=== PATIENT | female | born 1940 ===

== ENCOUNTER 2017-01-08 19:45 | Inpatient (IN) | payer MEDICARE, OTHER ==
[~2017-01-08] VITALS: Ht 165.9 cm; Wt 74.8 kg
[~2017-01-08 19:45] MED LIST: ASPIR 8181 MG ORAL; ATORVASTATIN CA20 MG ORAL; CLONIDINE0.1 MG PO; CYCLOSPORINE50 MG PO; DIOVAN320 MG ORAL; FUROSEMIDE40 MG ORAL; HYDRALAZINE HCL50 MG ORAL; LISINOPRIL10 MG ORAL; METOPROLOL TART50 M1 ORAL; NATEGLINIDE60 MG PO; NORCO 5-325 TA1 EACH ORAL; PREDNISONE20 M1 PO; PROTONIX40 MG ORAL; XANAX0.5 MG ORAL
[2017-01-09] VITALS: BP 134/72
[2017-01-09] MEDS: Norco 5mg/325mg tab ORAL PRN ×2 (00:56→13:47)
[2017-01-09] MEDS: D5 1/2NS 1,000 ML IV SCH ×2 (01:00→13:49)
[2017-01-09 04:00] VITALS: BP 110/66
[2017-01-09] MEDS: NovoLOG Insulin Flexpen SUBQ SCH ×4 (06:30→21:25)
[2017-01-09 07:17] LABS: BASOPHILS % (AUTO) 0.7 % (0.0-2.0); EOSINOPHILS % (AUTO) 1.4 % (0.0-3.0); LYMPHOCYTES % (AUTO) 26.8 % (20.0-45.0); MEAN CORPUSCULAR HEMOGLOBIN 27.6 PG (27.0-31.0); MEAN CORPUSCULAR HGB CONC 32.3 G/DL (32.0-36.0); MEAN CORPUSCULAR VOLUME 86 FL (80-99); MEAN PLATELET VOLUME 8.7 FL (6.5-10.1); NEUTROPHILS % (AUTO) 64.1 % (45.0-75.0); PLATELET COUNT 226 K/UL (150-450); RED CELL DISTRIBUTION WIDTH 13.2 % (11.6-14.8)
[2017-01-09 07:42] LABS: INR 1.1 (0.9-1.1)
[2017-01-09 07:45] LABS: ALANINE AMINOTRANSFERASE < 5 U/L (3-33); ALBUMIN/GLOBULIN RATIO 1.3 (1.0-2.7); ANION GAP 13 (5-15); ASPARTATE AMINO TRANSFERASE 9 U/L (5-40); CALCIUM 8.2 mg/dL (8.6-10.2); CARBON DIOXIDE 29 mEQ/L (20-30); CHLORIDE 99 mEQ/L (98-107); CREATININE 1.1 mg/dL (0.5-0.9); HEMOLYSIS 0; PHOSPHORUS 3.6 mg/dL (2.5-4.8); POTASSIUM 3.6 mEQ/L (3.4-4.9); SODIUM 141 mEQ/L (135-145); TOTAL PROTEIN 5.3 g/dL (6.6-8.7)
[2017-01-09 08:48] VITALS: BP 144/68
[2017-01-09 11:50] VITALS: BP 148/87
--- NOTE | 2017-01-09 13:50 | History & Physical ---
History and Physical History & Physicial Dictated for Int Med-Dr Montoya no. [id number]. FLORES BOURGEOIS Jan 09, 2017 13:50
[2017-01-09 16:24] VITALS: BP 117/77
--- NOTE | 2017-01-09 19:07 | History and Physical Report ---
DATE OF ADMISSION: 01/08/[address] Montoya. CHIEF COMPLAINT: The patient is a 76-year-old female, who presents with chief complaint of vaginal bleeding. HISTORY OF PRESENT ILLNESS: Began on 01/07/2017. The patient began to experience bright red blood per vagina. The patient states she soaked a couple of pads. The patient presented to [facility] emergency room. The patient was found to be anemic with vaginal bleeding. The patient is transferred to [facility] for insurance purposes. The patient presents with a chief complaint of postmenopausal bleeding. REVIEW OF SYSTEMS: Constitutional: The patient denies weight loss or weight gain. The patient denies fevers or chills. HEENT: The patient denies ear or throat pain. The patient denies headache. Cardiovascular: The patient denies palpitations or chest pain. Chest: The patient denies wheeze or shortness of breath. Abdomen: The patient complains of bilateral lower quadrant pain. The patient denies nausea, vomiting, diarrhea, or constipation. Genitourinary: The patient complains of vaginal bleeding as above. The patient denies dysuria or increased frequency of urination. Neuromuscular: The patient denies seizures or generalized weakness. PAST MEDICAL HISTORY: Significant for, 1. Type 2 diabetes. 2. Coronary artery disease. 3. Hypertension. PAST SURGICAL HISTORY: Significant for, 1. Appendectomy. 2. Coronary artery bypass graft in 2012. CURRENT MEDICATIONS: 1. Xanax 0.5 mg one tablet p.o. at bedtime p.r.n. 2. Aspirin 81 mg one tablet p.o. daily. 3. Atorvastatin 20 mg one tablet p.o. at bedtime. 4. Cyclosporine 50 mg one tablet p.o. twice daily. 5. Lasix 40 mg one tablet p.o. daily. 6. Hydralazine 75 mg one tablet p.o. q.8 hours p.r.n. 7. Lisinopril 10 mg two tablets p.o. twice daily. 8. Metoprolol 50 mg one tablet p.o. twice daily. 9. Starlix 60 mg one tablet p.o. three times daily. 10. Protonix 40 mg one tablet p.o. daily. 11. Prednisone 20 mg one tablet p.o. daily. 12. Diovan 320 mg one tablet p.o. daily. ALLERGIES: No known drug allergies. SOCIAL HISTORY: The patient is . The patient admits to tobacco use of 1/4 pack per day. The patient denies alcohol use. PHYSICAL EXAMINATION: VITAL SIGNS: Temperature 98.1 degrees, respirations 20, pulse 68, and blood pressure 134/26. GENERAL: The patient is a well-developed and well-nourished female, in no apparent distress. HEENT: Eyes, pupils are equal and responsive to light and accommodation. Extraocular movements are intact. NECK: Supple without lymphadenopathy. CHEST: Lungs are clear to auscultation bilaterally without wheezes or rales. CARDIOVASCULAR: Regular rhythm and rate. S1 and S2 are normal without murmurs, rubs, or gallops. ABDOMEN: Soft and nondistended. Positive bowel sounds. There is tenderness to palpation bilaterally in the lower quadrants. There is no rebound or guarding noted. EXTREMITIES: Negative for clubbing, cyanosis, or edema. RECTAL/GENITAL: Refused. NEUROLOGIC: Cranial nerves II through XII are grossly intact without focal deficits. Motor strength is 5/5 bilaterally. Deep tendon reflexes are 2+ plantar. LABORATORY STUDIES: WBC 6.0, hemoglobin 8.0, hematocrit 24.8, and platelets 226,000. Sodium 141, potassium 3.6, chloride 98, CO2 29, BUN 15, creatinine 1.1, glucose 112. An abdominal ultrasound at [place] revealed a left adnexal complicated cyst consistent with neoplasm. ASSESSMENT: This is a 76-year-old female. 1. Left adnexal mass. 2. Postmenopausal bleeding. 3. Anemia of blood loss. 4. Diabetes type 2. 5. Coronary artery disease. 6. Hypertension. 7. Hypercholesterolemia. TREATMENT: 1. Left adnexal mass/postmenopausal bleeding. The Gynecology consultation is obtained with Dr. Edward. A CT scan of the abdomen and pelvis is pending. We will follow recommendations of Gynecology. Complex cyst of the left adnexa is concerning for malignancy. 2. Anemia of chronic blood loss. The patient has been typed and crossed for two units of packed RBCs. We will transfuse for hemoglobin less than 8. 3. Diabetes type 2. Continue with Starlix as above. A NovoLog sliding scale has been instituted. 4. Coronary artery disease. The patient is status post coronary artery bypass graft. 5. Hypertension. Continue Diovan as above. 6. Hypercholesteremia. Continue Lipitor as above. James Villafana M.D. DR: KARMA JOB#: [id number] CC:
[2017-01-09 20:00] VITALS: BP 129/66
[2017-01-10] VITALS: BP 125/62
[2017-01-10] MEDS: D5 1/2NS 1,000 ML IV SCH ×2 (03:52→16:45)
[2017-01-10 04:00] VITALS: BP 131/72
[2017-01-10 04:26] LABS: BASOPHILS % (AUTO) 0.7 % (0.0-2.0); EOSINOPHILS % (AUTO) 1.9 % (0.0-3.0); LYMPHOCYTES % (AUTO) 28.6 % (20.0-45.0); MEAN CORPUSCULAR HEMOGLOBIN 27.9 PG (27.0-31.0); MEAN CORPUSCULAR HGB CONC 32.2 G/DL (32.0-36.0); MEAN CORPUSCULAR VOLUME 87 FL (80-99); MEAN PLATELET VOLUME 8.4 FL (6.5-10.1); MONOCYTES % (AUTO) 8.1 % (1.0-10.0); NEUTROPHILS % (AUTO) 60.6 % (45.0-75.0); PLATELET COUNT 218 K/UL (150-450); RED BLOOD COUNT 3.24 M/UL (4.20-5.40); RED CELL DISTRIBUTION WIDTH 13.9 % (11.6-14.8); WHITE BLOOD COUNT 5.8 K/UL (4.8-10.8)
[2017-01-10 04:42] LABS: ANION GAP 11 (5-15); CALCIUM 8.2 mg/dL (8.6-10.2); CARBON DIOXIDE 27 mEQ/L (20-30); CHLORIDE 103 mEQ/L (98-107); CREATININE 1.1 mg/dL (0.5-0.9); HEMOLYSIS 1; POTASSIUM 3.9 mEQ/L (3.4-4.9); SODIUM 141 mEQ/L (135-145)
[2017-01-10] MEDS: NovoLOG Insulin Flexpen SUBQ SCH ×4 (06:07→21:46)
[2017-01-10 08:00] VITALS: BP 148/83
[2017-01-10 12:00] VITALS: BP 145/88
--- NOTE | 2017-01-10 14:59 | Internal Med Progress Note ---
Subjective Physician Name Maurice Montoya Attending Physician Maurice Montoya MD Current Medications Medications (Trade) Dose Ordered Sig/Graciela Route PRN Reason Start Time Stop Time Status Last Admin Dose Admin Acetaminophen (Tylenol) 650 mg Q6H PRN ORAL Mild Pain/Temp > 100.5 01/08/17 22:30 02/07/17 22:29 Acetaminophen/ Hydrocodone Bitart ([place] 5/325) 1 tab Q4H PRN ORAL Moderate Pain (Pain Scale 4-6) 01/08/17 22:30 01/15/17 22:29 01/09/17 13:47 Dextrose STAT PRN IV Hypoglycemia 01/08/17 22:45 02/07/17 22:44 Dextrose/Sodium Chloride (D5 0.45% NS) 1,000 ml @ 75 mls/hr [id number] IV 01/09/17 00:45 02/08/17 00:44 01/10/17 03:52 Insulin Aspart (NovoLOG) BEFORE MEALS AND HS SUBQ 01/09/17 06:30 02/08/17 06:29 01/10/17 12:08 Morphine Sulfate (Morphine Sulfate) 2 mg Q4H PRN IVP For Pain 01/08/17 22:30 01/15/17 22:29 Ondansetron HCl (Zofran) 4 mg Q4H PRN IVP Nausea & Vomiting 01/08/17 22:30 02/07/17 22:29 Allergies: Coded Allergies: NO KNOWN ALLERGIES (Unverified Allergy, Unknown, 03/04/14) Subjective Awake, alert, responsive, no more vaginal bleeding, C/O abdominal pain, No N /V Objective Last Vital Signs Date Time Temp Pulse Resp B/P Pulse Ox O2 Delivery O2 Flow Rate FiO2 01/10/17 12:00 98.2 72 18 145/88 99 Room Air Laboratory Tests Test 01/10/17 03:35 White Blood Count 5.8 K/UL (4.8-10.8) Red Blood Count 3.24 M/UL (4.20-5.40) L Hemoglobin 9.0 G/DL (12.0-16.0) L Hematocrit 28.0 % (37.0-47.0) L Mean Corpuscular Volume 87 FL (80-99) Mean Corpuscular Hemoglobin 27.9 PG (27.0-31.0) Mean Corpuscular Hemoglobin Concent 32.2 G/DL (32.0-36.0) Red Cell Distribution Width 13.9 % (11.6-14.8) Platelet Count 218 K/UL (150-450) Mean Platelet Volume 8.4 FL (6.5-10.1) Neutrophils (%) (Auto) 60.6 % (45.0-75.0) Lymphocytes (%) (Auto) 28.6 % (20.0-45.0) Monocytes (%) (Auto) 8.1 % (1.0-10.0) Eosinophils (%) (Auto) 1.9 % (0.0-3.0) Basophils (%) (Auto) 0.7 % (0.0-2.0) Sodium Level 141 mEQ/L (135-145) Potassium Level 3.9 mEQ/L (3.4-4.9) Chloride Level 103 mEQ/L (98-107) Carbon Dioxide Level 27 mEQ/L (20-30) Anion Gap 11 (5-15) Blood Urea Nitrogen 16 mg/dL (7-23) Creatinine 1.1 mg/dL (0.5-0.9) H Estimat Glomerular Filtration Rate mL/min (>60) Glucose Level 119 mg/dL (74-106) H Calcium Level 8.2 mg/dL (8.6-10.2) L Intake and Output 01/09/17 01/10/17 19:00 07:00 Intake Total 1425 ml 825 ml Balance 1425 ml 825 ml Intake Oral 600 ml IV Total 825 ml 825 ml # Voids 3 Objective General: No acute distress, awake and alert HEENT: NCAT, sclera anicteric, PERRL, EOMI. Neck: Supple, no significant jugular venous distention, Lungs: Fair inspiratory effort, no accessory muscle use, clear to auscultation bilaterally, no Wheeze or Rales. Heart: Regular rate and rhythm, normal S1/S2, no murmurs Abdomen: soft, Generalized tenderness, nondistended. Normoactive bowel sounds. / Rectal: Refused and deferred. Extremities: No Cyanosis , clubbing or edema. Varicose Veins LE's. Neuro: A&O x 3, Able to move all extremities Skin: warm, no rashes or lesions Psych: Normal mood and affect Assessment/Plan Assessment/Plan 1. Left adnexal mass most likely Ovarian CA. 2. Postmenopausal bleeding. 3. Anemia most likely due to acute blood loss. 4. Diabetes type 2. 5. Coronary artery disease. 6. Hypertension. 7. Hypercholesterolemia. TREATMENT: Gynecology consultation Dr. Edward. CT scan of the abdomen and pelvis is pending result. Discuss [facility] and [place] 125 was over 100 Monitor Labs. Maurice Montoya MD Jan 10, 2017 14:59
--- NOTE | 2017-01-10 15:21 | Diagnostic Imaging Report ---
APPROVED REPORT CPT Code: 22705 Present Symptoms Comments: Pain Hx of bleeding BILATERAL: Imaging reveals a patent deep venous system bilaterally. There is no evidence of thrombus within the femoral, popliteal or tibial segments. The greater saphenous veins are also within normal limits. Doppler indicates normal spontaneous flow within these segments.
[2017-01-10 16:00] VITALS: BP 148/92
[2017-01-10] MEDS ORDERED: NS 550ML IV ONE (16:12)
[2017-01-10] MEDS ORDERED: D5 1/2NS 1000ml IV ONE (16:12)
[2017-01-10] MEDS ORDERED: Tubing Blood Filter IV ONE (16:12)
--- NOTE | 2017-01-10 16:26 | Diagnostic Imaging Report ---
Indications: Abdominal pain Technique: Continuous helical CT imaging of the abdomen and pelvis was performed with automatic exposure control following administration of oral and intravenous nonionic iodine contrast, on a Siemens sensation [address] scanner. Axial, coronal, and sagittal images were reconstructed at 5 mm slice thickness. CTDI volume(s): 17 mGy Total DLP: 860 mGy-cm Findings: Comparison: Thoracic CT angiogram 06/10/2014 Oral contrast is passed throughout the gastrointestinal tract to the level of the midtransverse colon, tract unopacified distal to this. Entire tract nondilated. Small hiatal hernia. Appendix not identified. No obvious mural thickening, adjacent stranding, extraluminal gas or fluid collections. Multilobulated, multiloculated complex cystic mass occupies much of the pelvis and extends into the lower abdomen, measuring 15 x 11 x 10 cm. It demonstrates a prominent soft tissue component at its right posterior lateral margin which measures 8 cm in diameter and appears to be contiguous with the cervix. Endocervical canal is dilated, filled with fluid and soft tissue density. No normal uterus identified. No normal separate ovary identified. No separate enlarged pelvic, retroperitoneal, or mesenteric lymph nodes. Multiple circumscribed low attenuation foci in liver and spleen. Most are cystic in appearance. 1 cm ectasia of focus of lesser hypoattenuation in hepatic segment 4A/B. adjacent to falciform ligament. Suggestion of one or more faintly calcified stones in gallbladder lumen. No mural thickening, adjacent fluid or edema. 1.5 cm circumscribed low-attenuation focus interpolar cortex left kidney. Prominent arterial mural calcifications without obvious flow-limiting stenosis or occlusion. Pancreas, adrenal glands, right kidney, unopacified ureters and urinary bladder, remainder visualized pelvic anatomy unremarkable. Clustered of small noncalcified nodules up to 10 mm in diameter lateral basal segment lower lobe right lung. 8 mm diameter calcified nodule also present in the right middle lobe. 5 mm irregular noncalcified nodular density basal aspect lingula. These areas were largely obscured by patchy parenchymal consolidation on previous CT angiogram. Linear densities and dependent portions of both lung bases. Sternal wires. Prominent calcification versus prosthesis in region of mitral valve. Multilevel disc space narrowing with marginal osteophyte formation, vacuum phenomenon and lumbar, lower thoracic spine. Central endplate compressions of L1, L4 vertebral bodies. Fixation hardware proximal aspect left femur, associated intertrochanteric fracture healed. No other focal skeletal abnormality identified. Impression: Large complex cystic and solid mass in the pelvis, apparently contiguous with the cervix. Presence or absence of uterus indeterminate. This is suspicious for neoplasm and may be cervical, uterine, or ovarian in origin. Hepatosplenic low-attenuation foci most likely cysts. Lesser low attenuation focus in left hepatic lobe likely focal fatty infiltration. Small hiatal hernia Left renal cortical cyst Suggestion of gallstones Arteriosclerosis Prior ORIF left femur Degenerative spondylosis with central endplate compressions, likely chronic Calcified and noncalcified nodules in both lung bases, likely all granulomatous, presence of some on previous exam indeterminate.. Metastatic neoplasm not excludable. Dedicated contrast-enhanced CT scan the thorax recommended. Previous sternotomy with possible mitral valve replacement
[2017-01-10 20:00] VITALS: BP 148/74
[2017-01-11] VITALS (7 sets, daily range): BP systolic 133–164; BP diastolic 73–92
[2017-01-11] MEDS: D5 1/2NS 1,000 ML IV SCH ×2 (06:05→17:47)
[2017-01-11 06:23] LABS: BASOPHILS % (AUTO) 0.8 % (0.0-2.0); EOSINOPHILS % (AUTO) 2.2 % (0.0-3.0); MEAN CORPUSCULAR HEMOGLOBIN 27.7 PG (27.0-31.0); MEAN CORPUSCULAR HGB CONC 32.3 G/DL (32.0-36.0); MEAN CORPUSCULAR VOLUME 86 FL (80-99); MEAN PLATELET VOLUME 8.5 FL (6.5-10.1); MONOCYTES % (AUTO) 8.6 % (1.0-10.0); NEUTROPHILS % (AUTO) 66.4 % (45.0-75.0); PLATELET COUNT 213 K/UL (150-450); RED BLOOD COUNT 3.07 M/UL (4.20-5.40); RED CELL DISTRIBUTION WIDTH 13.2 % (11.6-14.8); WHITE BLOOD COUNT 5.4 K/UL (4.8-10.8)
[2017-01-11] MEDS: NovoLOG Insulin Flexpen SUBQ SCH ×4 (06:24→20:16)
[2017-01-11] MEDS: Morphine Sulfate 2mg/ml Inj IVP PRN ×2 (07:40→13:58)
[2017-01-11] MEDS: Norco 5mg/325mg tab ORAL PRN ×2 (10:13→17:46)
--- NOTE | 2017-01-11 13:40 | Internal Med Progress Note ---
Subjective Date of Service: Jan 11, 2017 Physician Name James Bourgeois Attending Physician Maurice Montoya MD Current Medications Medications (Trade) Dose Ordered Sig/Graciela Route PRN Reason Start Time Stop Time Status Last Admin Dose Admin Acetaminophen (Tylenol) 650 mg Q6H PRN ORAL Mild Pain/Temp > 100.5 01/08/17 22:30 02/07/17 22:29 01/10/17 21:46 Acetaminophen/ Hydrocodone Bitart ([place] 5/325) 1 tab Q4H PRN ORAL Moderate Pain (Pain Scale 4-6) 01/08/17 22:30 01/15/17 22:29 01/11/17 10:13 Dextrose STAT PRN IV Hypoglycemia 01/08/17 22:45 02/07/17 22:44 Dextrose/Sodium Chloride (D5 0.45% NS) 1,000 ml @ 75 mls/hr [id number] IV 01/09/17 00:45 02/08/17 00:44 01/10/17 16:45 Insulin Aspart (NovoLOG) BEFORE MEALS AND HS SUBQ 01/09/17 06:30 02/08/17 06:29 01/11/17 11:39 Morphine Sulfate (Morphine Sulfate) 2 mg Q4H PRN IVP For Pain 01/08/17 22:30 01/15/17 22:29 01/11/17 07:40 Ondansetron HCl (Zofran) 4 mg Q4H PRN IVP Nausea & Vomiting 01/08/17 22:30 02/07/17 22:29 Allergies: Coded Allergies: NO KNOWN ALLERGIES (Unverified Allergy, Unknown, 03/04/14) ROS Limited/Unobtainable: No Constitutional: Reports: no symptoms HEENT: Reports: no symptoms Cardiovascular: Reports: no symptoms Respiratory: Reports: no symptoms Gastrointestinal/Abdominal: Reports: no symptoms Genitourinary: Reports: other - vaginal bleeding Neurologic/Psychiatric: Reports: no symptoms Subjective 76 YO F admitted with post menopausal bleeding. Await CELL LEAD consult. Cover for Int Med-Dr Montoya. Objective Last Vital Signs Date Time Temp Pulse Resp B/P Pulse Ox O2 Delivery O2 Flow Rate FiO2 01/11/17 11:12 97.2 01/11/17 08:54 68 21 160/92 96 Room Air Laboratory Tests Test 01/11/17 05:50 White Blood Count 5.4 K/UL (4.8-10.8) Red Blood Count 3.07 M/UL (4.20-5.40) L Hemoglobin 8.5 G/DL (12.0-16.0) L Hematocrit 26.3 % (37.0-47.0) L Mean Corpuscular Volume 86 FL (80-99) Mean Corpuscular Hemoglobin 27.7 PG (27.0-31.0) Mean Corpuscular Hemoglobin Concent 32.3 G/DL (32.0-36.0) Red Cell Distribution Width 13.2 % (11.6-14.8) Platelet Count 213 K/UL (150-450) Mean Platelet Volume 8.5 FL (6.5-10.1) Neutrophils (%) (Auto) 66.4 % (45.0-75.0) Lymphocytes (%) (Auto) 22.0 % (20.0-45.0) Monocytes (%) (Auto) 8.6 % (1.0-10.0) Eosinophils (%) (Auto) 2.2 % (0.0-3.0) Basophils (%) (Auto) 0.8 % (0.0-2.0) Intake and Output 01/10/17 01/11/17 19:00 07:00 Intake Total 225 ml 75 ml Balance 225 ml 75 ml IV Total 225 ml 75 ml # Voids 5 Objective General: alert, cooperative, no distress, appears stated age Head: normocephalic, without obvious abnormality, atraumatic Eyes: conjunctivae/corneas clear. PERRL, EOM's intact Throat: lips, mucosa, and tongue normal. MMM Neck: supple, symmetrical, trachea midline, and no JVD Lungs: clear to auscultation bilaterally Heart: regular rate and rhythm, S1, S2 normal, no murmur, click, rub or gallop Abdomen: soft, tender to palp, non-distended, bowel sounds normal; no masses or organomegaly Extremities: extremities normal, atraumatic, no cyanosis or edema Pulses: 2+ and symmetric Skin: skin color, texture, turgor normal; no rashes or lesions Neurologic: grossly normal, no focal deficits Assessment/Plan Problem List: (1) Post-menopausal bleeding (2) Menorrhagia (3) Anemia, blood loss Assessment & Plan: Stable hemoglobin (4) Diabetes mellitus type II, controlled Assessment & Plan: Cont novolog sliding scale. (5) Coronary artery disease (6) Hypertension (7) Hypercholesterolemia (8) Pelvic mass in female Assessment & Plan: Cystic; concerning for malignancy. Await CELL LEAD consult. Status: not improved JAMES BOURGEOIS Jan 11, 2017 13:40
[2017-01-12] VITALS (11 sets, daily range): BP systolic 121–157; BP diastolic 74–87
[2017-01-12] MEDS: NovoLOG Insulin Flexpen SUBQ SCH ×4 (05:39→20:39)
[2017-01-12] MEDS: Norco 5mg/325mg tab ORAL PRN ×3 (05:39→23:44)
[2017-01-12] MEDS: D5 1/2NS 1,000 ML IV SCH ×2 (06:43→22:05)
[2017-01-12 07:10] LABS: ANION GAP 9 (5-15); CALCIUM 7.8 mg/dL (8.6-10.2); CARBON DIOXIDE 29 mEQ/L (20-30); CHLORIDE 103 mEQ/L (98-107); HEMOLYSIS 1; POTASSIUM 3.8 mEQ/L (3.4-4.9); SODIUM 141 mEQ/L (135-145)
[2017-01-12 07:15] LABS: MEAN CORPUSCULAR HEMOGLOBIN 28.3 PG (27.0-31.0); MEAN CORPUSCULAR HGB CONC 32.8 G/DL (32.0-36.0); MEAN CORPUSCULAR VOLUME 86 FL (80-99); MEAN PLATELET VOLUME 8.2 FL (6.5-10.1); PLATELET COUNT 216 K/UL (150-450); RED BLOOD COUNT 2.48 M/UL (4.20-5.40); WHITE BLOOD COUNT 6.3 K/UL (4.8-10.8)
[2017-01-12 08:28] LABS: ANISOCYTOSIS 1+; BAND NEUTROPHILS % (MANUAL) 0 % (0-8); BASOPHILS % (MANUAL) 1 % (0-2); EOSINOPHILS % (MANUAL) 0 % (0-3); HYPOCHROMASIA 3+; LYMPHOCYTES % (MANUAL) 22 % (20-45); NEUTROPHILS % (MANUAL) 75 % (45-75); PLATELET ESTIMATE ADEQUATE; PLATELET MORPHOLOGY NORMAL; SPHEROCYTES 2+; TOTAL CELLS COUNTED 100
--- NOTE | 2017-01-12 10:49 | Wound Care Consultation ---
Wound Assessment Wound Assessment #1: Wound Number: #1 Wound Present on Admission: No New Wound: Yes Status Change of Wound: No Wound Location Body Site Modif: mid Wound Location Body Site: sacral Wound Type: pressure ulcer Cristina Test: Does not Cristina Pressure Ulcer Stage: II Wound Thickness: Partial Thickness Wound Length: 1.0 Wound Width: 1.0 Wound Depth: <0.1 Percent of Wound [place]/Red: 100 Wound Drainage Description: Serosanguineous Wound Drainage Amount: Scant Wound Drainage Odor: None/Absent Tissue Surrounding Wound: Denuded Wound General Appearance: Reddened Wound Assessment #2: Wound Number: #2 Wound Present on Admission: No New Wound: Yes Status Change of Wound: No Wound Location Body Site Modif: left Wound Location Body Site: sacral Wound Type: pressure ulcer Cristina Test: Does not Cristina Pressure Ulcer Stage: II Wound Thickness: Partial Thickness Wound Length: 1.0 Wound Width: 1.0 Wound Depth: <0.1 Percent of Wound [place]/Red: 100 Wound Drainage Description: Serosanguineous Wound Drainage Amount: Scant Wound Drainage Odor: None/Absent Tissue Surrounding Wound: Denuded Wound General Appearance: Reddened Wound Comment #1 Mid sacral pressure ulcer stage II. #2 Left sacral pressure ulcer stage II. upon assessment noted wound bed superficial 100% pink ,noted denuded skin to area. possible ruptures blister. patient denies any pain or discomfort to site. Recommendation. - Local wound care as ordered. -Turn and reposition. -Keep clean and dry. -Optimize nutrition. -Avoid shear and friction. -Offload affected sites. -Apply SPR mattress low air loss overlay. -Assess and follow up with MD if further change of condition in skin is noted. EFFIE CROOK Jan 12, 2017 10:49
--- NOTE | 2017-01-12 17:07 | Diagnostic Imaging Report ---
Indication: Pelvic pain, postmenopausal vaginal bleeding Technique: Transabdominal and transvaginal images Comparison: CT scan 01/08/2017 Findings: Uterus measures 9 cm length by 5.5 cm AP. Endometrium measures 4 mm thick. There is a 5 cm fundal fibroid versus solid component of the mass. There is a complex pelvic mass with cystic and solid components which 16 x 10 x 14 cm. This appears to be centered in the left adnexal region. The right ovary could not be demonstrated. No definite free fluid. Impression: Complex cystic and solid pelvic mass, suspect left adnexal in origin, highly suspicious for ovarian neoplasm. This corresponds to the lesion described on recent CT scan 5 cm fundal fibroid versus solid component of the mass Nonvisualization of the right ovary
--- NOTE | 2017-01-12 19:20 | Internal Med Progress Note ---
Subjective Date of Service: Jan 12, 2017 Physician Name James Bourgeois Attending Physician Maurice Montoya MD Current Medications Medications (Trade) Dose Ordered Sig/Graciela Route PRN Reason Start Time Stop Time Status Last Admin Dose Admin Acetaminophen (Tylenol) 650 mg Q6H PRN ORAL Mild Pain/Temp > 100.5 01/08/17 22:30 02/07/17 22:29 01/10/17 21:46 Acetaminophen/ Hydrocodone Bitart ([place] 5/325) 1 tab Q4H PRN ORAL Moderate Pain (Pain Scale 4-6) 01/08/17 22:30 01/15/17 22:29 01/12/17 15:07 Dextrose STAT PRN IV Hypoglycemia 01/08/17 22:45 02/07/17 22:44 Dextrose/Sodium Chloride (D5 0.45% NS) 1,000 ml @ 75 mls/hr [id number] IV 01/09/17 00:45 02/08/17 00:44 01/12/17 06:43 Insulin Aspart (NovoLOG) BEFORE MEALS AND HS SUBQ 01/09/17 06:30 02/08/17 06:29 01/12/17 11:39 Morphine Sulfate (Morphine Sulfate) 2 mg Q4H PRN IVP For Pain 01/08/17 22:30 01/15/17 22:29 01/11/17 13:58 Ondansetron HCl (Zofran) 4 mg Q4H PRN IVP Nausea & Vomiting 01/08/17 22:30 02/07/17 22:29 Allergies: Coded Allergies: NO KNOWN ALLERGIES (Unverified Allergy, Unknown, 03/04/14) ROS Limited/Unobtainable: No Constitutional: Reports: no symptoms HEENT: Reports: no symptoms Cardiovascular: Reports: no symptoms Respiratory: Reports: no symptoms Gastrointestinal/Abdominal: Reports: abdominal pain Genitourinary: Reports: no symptoms Neurologic/Psychiatric: Reports: no symptoms Subjective 76 YO F admitted with post menopausal bleeding. Await EDUCATIONAL CONSULTANT consult. Cover for Int Med-Dr Montoya. Objective Last Vital Signs Date Time Temp Pulse Resp B/P Pulse Ox O2 Delivery O2 Flow Rate FiO2 01/12/17 16:13 98.1 72 20 144/77 94 Room Air Laboratory Tests Test 01/12/17 05:10 White Blood Count 6.3 K/UL (4.8-10.8) Red Blood Count 2.48 M/UL (4.20-5.40) L Hemoglobin 7.0 G/DL (12.0-16.0) L Hematocrit 21.3 % (37.0-47.0) L Mean Corpuscular Volume 86 FL (80-99) Mean Corpuscular Hemoglobin 28.3 PG (27.0-31.0) Mean Corpuscular Hemoglobin Concent 32.8 G/DL (32.0-36.0) Red Cell Distribution Width 13.0 % (11.6-14.8) Platelet Count 216 K/UL (150-450) Mean Platelet Volume 8.2 FL (6.5-10.1) Neutrophils (%) (Auto) % (45.0-75.0) Lymphocytes (%) (Auto) % (20.0-45.0) Monocytes (%) (Auto) % (1.0-10.0) Eosinophils (%) (Auto) % (0.0-3.0) Basophils (%) (Auto) % (0.0-2.0) Differential Total Cells Counted 100 Neutrophils % (Manual) 75 % (45-75) Lymphocytes % (Manual) 22 % (20-45) Monocytes % (Manual) 2 % (1-10) Eosinophils % (Manual) 0 % (0-3) Basophils % (Manual) 1 % (0-2) Band Neutrophils 0 % (0-8) Platelet Estimate Adequate Platelet Morphology Normal Hypochromasia 3+ Anisocytosis 1+ Spherocytes 2+ Sodium Level 141 mEQ/L (135-145) Potassium Level 3.8 mEQ/L (3.4-4.9) Chloride Level 103 mEQ/L (98-107) Carbon Dioxide Level 29 mEQ/L (20-30) Anion Gap 9 (5-15) Blood Urea Nitrogen 9 mg/dL (7-23) Creatinine 1.0 mg/dL (0.5-0.9) H Estimat Glomerular Filtration Rate mL/min (>60) Glucose Level 126 mg/dL (74-106) H Calcium Level 7.8 mg/dL (8.6-10.2) L Intake and Output 01/11/17 01/12/17 19:00 07:00 Intake Total 825 ml 900 ml Balance 825 ml 900 ml IV Total 825 ml 900 ml # Voids 3 Objective General: alert, cooperative, no distress, appears stated age Head: normocephalic, without obvious abnormality, atraumatic Eyes: conjunctivae/corneas clear. PERRL, EOM's intact Throat: lips, mucosa, and tongue normal. MMM Neck: supple, symmetrical, trachea midline, and no JVD Lungs: clear to auscultation bilaterally Heart: regular rate and rhythm, S1, S2 normal, no murmur, click, rub or gallop Abdomen: soft, tender to palp, non-distended, bowel sounds normal; no masses or organomegaly Extremities: extremities normal, atraumatic, no cyanosis or edema Pulses: 2+ and symmetric Skin: skin color, texture, turgor normal; no rashes or lesions Neurologic: grossly normal, no focal deficits Assessment/Plan Problem List: (1) Post-menopausal bleeding (2) Menorrhagia (3) Anemia, blood loss Assessment & Plan: Stable hemoglobin (4) Diabetes mellitus type II, controlled Assessment & Plan: Cont novolog sliding scale. (5) Coronary artery disease (6) Hypertension (7) Hypercholesterolemia (8) Pelvic mass in female Assessment & Plan: Cystic; concerning for malignancy. Await EDUCATIONAL CONSULTANT consult. Status: not improved JAMES BOURGEOIS Jan 12, 2017 19:20
[2017-01-13] VITALS: BP 171/101
[2017-01-13 04:00] VITALS: BP 156/78
[2017-01-13] MEDS: NovoLOG Insulin Flexpen SUBQ SCH ×4 (05:44→22:50)
[2017-01-13 06:28] LABS: BASOPHILS % (AUTO) 0.7 % (0.0-2.0); EOSINOPHILS % (AUTO) 2.7 % (0.0-3.0); LYMPHOCYTES % (AUTO) 19.1 % (20.0-45.0); MEAN CORPUSCULAR HEMOGLOBIN 28.6 PG (27.0-31.0); MEAN CORPUSCULAR HGB CONC 32.8 G/DL (32.0-36.0); MEAN CORPUSCULAR VOLUME 87 FL (80-99); MEAN PLATELET VOLUME 8.7 FL (6.5-10.1); MONOCYTES % (AUTO) 5.6 % (1.0-10.0); NEUTROPHILS % (AUTO) 71.8 % (45.0-75.0); PLATELET COUNT 239 K/UL (150-450); RED BLOOD COUNT 3.26 M/UL (4.20-5.40)
[2017-01-13 06:43] LABS: ANION GAP 9 (5-15); CALCIUM 8.2 mg/dL (8.6-10.2); CARBON DIOXIDE 29 mEQ/L (20-30); CHLORIDE 103 mEQ/L (98-107); HEMOLYSIS 0; POTASSIUM 4.1 mEQ/L (3.4-4.9); SODIUM 141 mEQ/L (135-145)
[2017-01-13 08:00] VITALS: BP_SYST 133; BP_SYST 157; BP_DIAS 60; BP_DIAS 99
[2017-01-13] MEDS: Norco 5mg/325mg tab ORAL PRN ×2 (10:20→17:23)
[2017-01-13] MEDS: D5 1/2NS 1,000 ML IV SCH (11:51)
[2017-01-13 12:00] VITALS: BP 128/62
[2017-01-13 16:00] VITALS: BP 125/82
--- NOTE | 2017-01-13 19:10 | Internal Med Progress Note ---
Subjective Date of Service: Jan 13, 2017 Physician Name James Villafana Attending Physician Maurice Montoya MD Current Medications Medications (Trade) Dose Ordered Sig/Graciela Route PRN Reason Start Time Stop Time Status Last Admin Dose Admin Acetaminophen (Tylenol) 650 mg Q6H PRN ORAL Mild Pain/Temp > 100.5 01/08/17 22:30 02/07/17 22:29 01/10/17 21:46 Acetaminophen/ Hydrocodone Bitart ([place] 5/325) 1 tab Q4H PRN ORAL Moderate Pain (Pain Scale 4-6) 01/08/17 22:30 01/15/17 22:29 01/13/17 17:23 Dextrose STAT PRN IV Hypoglycemia 01/08/17 22:45 02/07/17 22:44 Dextrose/Sodium Chloride (D5 0.45% NS) 1,000 ml @ 75 mls/hr [id number] IV 01/09/17 00:45 02/08/17 00:44 01/13/17 11:51 Insulin Aspart (NovoLOG) BEFORE MEALS AND HS SUBQ 01/09/17 06:30 02/08/17 06:29 01/13/17 17:23 Morphine Sulfate (Morphine Sulfate) 2 mg Q4H PRN IVP For Pain 01/08/17 22:30 01/15/17 22:29 01/11/17 13:58 Ondansetron HCl (Zofran) 4 mg Q4H PRN IVP Nausea & Vomiting 01/08/17 22:30 02/07/17 22:29 Allergies: Coded Allergies: NO KNOWN ALLERGIES (Unverified Allergy, Unknown, 03/04/14) ROS Limited/Unobtainable: No Constitutional: Reports: no symptoms HEENT: Reports: no symptoms Cardiovascular: Reports: no symptoms Respiratory: Reports: no symptoms Gastrointestinal/Abdominal: Reports: no symptoms Genitourinary: Reports: other - vaginal bleeding Neurologic/Psychiatric: Reports: no symptoms Subjective 76 YO F admitted with post menopausal bleeding. Await transfer to contracted facility for TRIAGE RN workup. Cover for Int Med-Dr Montoya. Objective Last Vital Signs Date Time Temp Pulse Resp B/P Pulse Ox O2 Delivery O2 Flow Rate FiO2 01/13/17 18:22 96.8 01/13/17 16:00 84 18 125/82 96 Room Air Laboratory Tests Test 01/13/17 05:55 White Blood Count 6.0 K/UL (4.8-10.8) Red Blood Count 3.26 M/UL (4.20-5.40) L Hemoglobin 9.3 G/DL (12.0-16.0) #L Hematocrit 28.4 % (37.0-47.0) #L Mean Corpuscular Volume 87 FL (80-99) Mean Corpuscular Hemoglobin 28.6 PG (27.0-31.0) Mean Corpuscular Hemoglobin Concent 32.8 G/DL (32.0-36.0) Red Cell Distribution Width 14.0 % (11.6-14.8) Platelet Count 239 K/UL (150-450) Mean Platelet Volume 8.7 FL (6.5-10.1) Neutrophils (%) (Auto) 71.8 % (45.0-75.0) Lymphocytes (%) (Auto) 19.1 % (20.0-45.0) L Monocytes (%) (Auto) 5.6 % (1.0-10.0) Eosinophils (%) (Auto) 2.7 % (0.0-3.0) Basophils (%) (Auto) 0.7 % (0.0-2.0) Sodium Level 141 mEQ/L (135-145) Potassium Level 4.1 mEQ/L (3.4-4.9) Chloride Level 103 mEQ/L (98-107) Carbon Dioxide Level 29 mEQ/L (20-30) Anion Gap 9 (5-15) Blood Urea Nitrogen 9 mg/dL (7-23) Creatinine 1.0 mg/dL (0.5-0.9) H Estimat Glomerular Filtration Rate mL/min (>60) Glucose Level 112 mg/dL (74-106) H Calcium Level 8.2 mg/dL (8.6-10.2) L Intake and Output 01/12/17 01/13/17 19:00 07:00 Intake Total 525 ml 375 ml Balance 525 ml 375 ml Intake Oral 300 ml IV Total 225 ml 375 ml # Voids 5 1 Objective General: alert, cooperative, no distress, appears stated age Head: normocephalic, without obvious abnormality, atraumatic Eyes: conjunctivae/corneas clear. PERRL, EOM's intact Throat: lips, mucosa, and tongue normal. MMM Neck: supple, symmetrical, trachea midline, and no JVD Lungs: clear to auscultation bilaterally Heart: regular rate and rhythm, S1, S2 normal, no murmur, click, rub or gallop Abdomen: soft, tender to palp, non-distended, bowel sounds normal; no masses or organomegaly Extremities: extremities normal, atraumatic, no cyanosis or edema Pulses: 2+ and symmetric Skin: skin color, texture, turgor normal; no rashes or lesions Neurologic: grossly normal, no focal deficits Assessment/Plan Problem List: (1) Post-menopausal bleeding Assessment & Plan: See TRIAGE RN note. (2) Menorrhagia (3) Anemia, blood loss Assessment & Plan: Stable hemoglobin (4) Diabetes mellitus type II, controlled Assessment & Plan: Cont novolog sliding scale. (5) Coronary artery disease (6) Hypertension (7) Hypercholesterolemia (8) Pelvic mass in female Assessment & Plan: Cystic; concerning for malignancy. See TRIAGE RN consult- patient will require transfer to contracted facility for TRIAGE RN/ONC workup. Status: not improved Assessment/Plan Transfer to contracted facility for TRIAGE RN/ONC workup. Discussed with TRIAGE RN - JAMES Whipple Jan 13, 2017 19:10
[2017-01-13 20:00] VITALS: BP 147/97
[2017-01-14] MEDS: D5 1/2NS 1,000 ML IV SCH ×2 (02:38→14:05)
[2017-01-14 04:00] VITALS: BP 167/96
[2017-01-14 04:55] LABS: BASOPHILS % (AUTO) 0.5 % (0.0-2.0); EOSINOPHILS % (AUTO) 2.2 % (0.0-3.0); LYMPHOCYTES % (AUTO) 17.6 % (20.0-45.0); MEAN CORPUSCULAR HEMOGLOBIN 28.5 PG (27.0-31.0); MEAN CORPUSCULAR HGB CONC 32.8 G/DL (32.0-36.0); MEAN CORPUSCULAR VOLUME 87 FL (80-99); MEAN PLATELET VOLUME 8.6 FL (6.5-10.1); MONOCYTES % (AUTO) 6.3 % (1.0-10.0); NEUTROPHILS % (AUTO) 73.5 % (45.0-75.0); PLATELET COUNT 235 K/UL (150-450); RED BLOOD COUNT 2.95 M/UL (4.20-5.40); RED CELL DISTRIBUTION WIDTH 13.8 % (11.6-14.8); WHITE BLOOD COUNT 6.7 K/UL (4.8-10.8)
[2017-01-14 05:00] VITALS: BP 154/90
[2017-01-14 05:14] LABS: ANION GAP 12 (5-15); CALCIUM 8.1 mg/dL (8.6-10.2); CARBON DIOXIDE 28 mEQ/L (20-30); CHLORIDE 102 mEQ/L (98-107); CREATININE 1.1 mg/dL (0.5-0.9); HEMOLYSIS 2; POTASSIUM 3.6 mEQ/L (3.4-4.9); SODIUM 142 mEQ/L (135-145)
[2017-01-14] MEDS: NovoLOG Insulin Flexpen SUBQ SCH ×4 (07:40→20:12)
[2017-01-14 08:00] VITALS: BP 137/89
[2017-01-14] MEDS ORDERED: D5 1/2NS 1000ml IV ONE (09:58)
[2017-01-14] MEDS ORDERED: NS 550ML IV ONE (09:58)
[2017-01-14] MEDS ORDERED: Tubing IV Blood Pump IV ONE (09:58)
[2017-01-14] MEDS: Norco 5mg/325mg tab ORAL PRN ×2 (11:09→21:51)
[2017-01-14 11:54] VITALS: BP 141/98
--- NOTE | 2017-01-14 13:20 | Internal Med Progress Note ---
Subjective Date of Service: Jan 14, 2017 Physician Name James Villafana Attending Physician Maurice Montoya MD Current Medications Medications (Trade) Dose Ordered Sig/Graciela Route PRN Reason Start Time Stop Time Status Last Admin Dose Admin Acetaminophen (Tylenol) 650 mg Q6H PRN ORAL Mild Pain/Temp > 100.5 01/08/17 22:30 02/07/17 22:29 01/10/17 21:46 Acetaminophen/ Hydrocodone Bitart ([place] 5/325) 1 tab Q4H PRN ORAL Moderate Pain (Pain Scale 4-6) 01/08/17 22:30 01/15/17 22:29 01/14/17 11:09 Dextrose STAT PRN IV Hypoglycemia 01/08/17 22:45 02/07/17 22:44 Dextrose/Sodium Chloride (D5 0.45% NS) 1,000 ml @ 75 mls/hr [id number] IV 01/09/17 00:45 02/08/17 00:44 01/14/17 02:38 Insulin Aspart (NovoLOG) BEFORE MEALS AND HS SUBQ 01/09/17 06:30 02/08/17 06:29 01/14/17 12:38 Morphine Sulfate (Morphine Sulfate) 2 mg Q4H PRN IVP For Pain 01/08/17 22:30 01/15/17 22:29 01/11/17 13:58 Ondansetron HCl (Zofran) 4 mg Q4H PRN IVP Nausea & Vomiting 01/08/17 22:30 02/07/17 22:29 Allergies: Coded Allergies: NO KNOWN ALLERGIES (Unverified Allergy, Unknown, 03/04/14) ROS Limited/Unobtainable: No Constitutional: Reports: no symptoms HEENT: Reports: no symptoms Cardiovascular: Reports: no symptoms Respiratory: Reports: no symptoms Gastrointestinal/Abdominal: Reports: no symptoms Genitourinary: Reports: no symptoms Neurologic/Psychiatric: Reports: no symptoms Subjective 76 YO F admitted with post menopausal bleeding. Await transfer to contracted facility for TURNING AND BEADING MACHINE OPERATOR workup. Cover for Int Med-Dr Montoya. Objective Last Vital Signs Date Time Temp Pulse Resp B/P Pulse Ox O2 Delivery O2 Flow Rate FiO2 01/14/17 11:54 97.5 86 18 141/98 98 Room Air Laboratory Tests Test 01/14/17 03:47 White Blood Count 6.7 K/UL (4.8-10.8) Red Blood Count 2.95 M/UL (4.20-5.40) L Hemoglobin 8.4 G/DL (12.0-16.0) L Hematocrit 25.6 % (37.0-47.0) L Mean Corpuscular Volume 87 FL (80-99) Mean Corpuscular Hemoglobin 28.5 PG (27.0-31.0) Mean Corpuscular Hemoglobin Concent 32.8 G/DL (32.0-36.0) Red Cell Distribution Width 13.8 % (11.6-14.8) Platelet Count 235 K/UL (150-450) Mean Platelet Volume 8.6 FL (6.5-10.1) Neutrophils (%) (Auto) 73.5 % (45.0-75.0) Lymphocytes (%) (Auto) 17.6 % (20.0-45.0) L Monocytes (%) (Auto) 6.3 % (1.0-10.0) Eosinophils (%) (Auto) 2.2 % (0.0-3.0) Basophils (%) (Auto) 0.5 % (0.0-2.0) Sodium Level 142 mEQ/L (135-145) Potassium Level 3.6 mEQ/L (3.4-4.9) Chloride Level 102 mEQ/L (98-107) Carbon Dioxide Level 28 mEQ/L (20-30) Anion Gap 12 (5-15) Blood Urea Nitrogen 9 mg/dL (7-23) Creatinine 1.1 mg/dL (0.5-0.9) H Estimat Glomerular Filtration Rate mL/min (>60) Glucose Level 131 mg/dL (74-106) H Calcium Level 8.1 mg/dL (8.6-10.2) L Intake and Output 01/13/17 01/14/17 19:00 07:00 Intake Total 600 ml 1250 ml Balance 600 ml 1250 ml Intake Oral 600 ml 500 ml IV Total 750 ml # Voids 3 5 Objective General: alert, cooperative, no distress, appears stated age Head: normocephalic, without obvious abnormality, atraumatic Eyes: conjunctivae/corneas clear. PERRL, EOM's intact Throat: lips, mucosa, and tongue normal. MMM Neck: supple, symmetrical, trachea midline, and no JVD Lungs: clear to auscultation bilaterally Heart: regular rate and rhythm, S1, S2 normal, no murmur, click, rub or gallop Abdomen: soft, tender to palp, non-distended, bowel sounds normal; no masses or organomegaly Extremities: extremities normal, atraumatic, no cyanosis or edema Pulses: 2+ and symmetric Skin: skin color, texture, turgor normal; no rashes or lesions Neurologic: grossly normal, no focal deficits Assessment/Plan Problem List: (1) Post-menopausal bleeding Assessment & Plan: See TURNING AND BEADING MACHINE OPERATOR note-Dr Edward (2) Menorrhagia (3) Anemia, blood loss Assessment & Plan: S/P transfusion 3 units PRBC. Stable hemoglobin (4) Diabetes mellitus type II, controlled Assessment & Plan: Cont novolog sliding scale. (5) Coronary artery disease (6) Hypertension (7) Hypercholesterolemia (8) Pelvic mass in female Assessment & Plan: Cystic; concerning for malignancy. See TURNING AND BEADING MACHINE OPERATOR consult- patient will require transfer to contracted facility for TURNING AND BEADING MACHINE OPERATOR/ONC workup. See TURNING AND BEADING MACHINE OPERATOR note-Dr Edward Assessment/Plan Transfer to contracted facility for TURNING AND BEADING MACHINE OPERATOR/ONC workup. Discussed with TURNING AND BEADING MACHINE OPERATOR - JAMES Whipple Jan 14, 2017 13:20
[2017-01-14 16:00] VITALS: BP 155/93
[2017-01-14 20:00] VITALS: BP 162/96
[2017-01-15 00:23] VITALS: BP 148/93
[2017-01-15] MEDS: D5 1/2NS 1,000 ML IV SCH ×2 (03:00→16:45)
[2017-01-15 04:00] VITALS: BP 158/97
[2017-01-15 04:58] LABS: MEAN CORPUSCULAR HEMOGLOBIN 29.3 PG (27.0-31.0); MEAN CORPUSCULAR HGB CONC 33.4 G/DL (32.0-36.0); MEAN CORPUSCULAR VOLUME 88 FL (80-99); MEAN PLATELET VOLUME 7.5 FL (6.5-10.1); PLATELET COUNT 220 K/UL (150-450); RED BLOOD COUNT 2.69 M/UL (4.20-5.40); RED CELL DISTRIBUTION WIDTH 14.1 % (11.6-14.8); WHITE BLOOD COUNT 5.1 K/UL (4.8-10.8)
[2017-01-15 05:10] LABS: ANION GAP 11 (5-15); CALCIUM 8.1 mg/dL (8.6-10.2); CARBON DIOXIDE 30 mEQ/L (20-30); CHLORIDE 101 mEQ/L (98-107); CREATININE 0.9 mg/dL (0.5-0.9); HEMOLYSIS 7; POTASSIUM 3.8 mEQ/L (3.4-4.9); SODIUM 142 mEQ/L (135-145)
[2017-01-15] MEDS: NovoLOG Insulin Flexpen SUBQ SCH ×4 (06:30→21:00)
[2017-01-15 08:01] VITALS: BP 132/88
[2017-01-15] MEDS: Norco 5mg/325mg tab ORAL PRN ×2 (11:02→17:32)
[2017-01-15 12:00] VITALS: BP 130/90
--- NOTE | 2017-01-15 13:58 | Internal Med Progress Note ---
Subjective Date of Service: Jan 15, 2017 Physician Name James Villafana Attending Physician Maurice Montoya MD Current Medications Medications (Trade) Dose Ordered Sig/Graciela Route PRN Reason Start Time Stop Time Status Last Admin Dose Admin Acetaminophen (Tylenol) 650 mg Q6H PRN ORAL Mild Pain/Temp > 100.5 01/08/17 22:30 02/07/17 22:29 01/14/17 17:48 Acetaminophen/ Hydrocodone Bitart ([place] 5/325) 1 tab Q4H PRN ORAL Moderate Pain (Pain Scale 4-6) 01/08/17 22:30 01/15/17 22:29 01/15/17 11:02 Dextrose STAT PRN IV Hypoglycemia 01/08/17 22:45 02/07/17 22:44 Dextrose/Sodium Chloride (D5 0.45% NS) 1,000 ml @ 75 mls/hr [id number] IV 01/09/17 00:45 02/08/17 00:44 01/15/17 03:00 Insulin Aspart (NovoLOG) BEFORE MEALS AND HS SUBQ 01/09/17 06:30 02/08/17 06:29 01/14/17 20:12 Morphine Sulfate (Morphine Sulfate) 2 mg Q4H PRN IVP For Pain 01/08/17 22:30 01/15/17 22:29 01/11/17 13:58 Ondansetron HCl (Zofran) 4 mg Q4H PRN IVP Nausea & Vomiting 01/08/17 22:30 02/07/17 22:29 Allergies: Coded Allergies: NO KNOWN ALLERGIES (Unverified Allergy, Unknown, 03/04/14) ROS Limited/Unobtainable: No Constitutional: Reports: no symptoms HEENT: Reports: no symptoms Cardiovascular: Reports: no symptoms Respiratory: Reports: no symptoms Gastrointestinal/Abdominal: Reports: no symptoms Genitourinary: Reports: other - menorrhagia Neurologic/Psychiatric: Reports: no symptoms Subjective 76 YO F admitted with post menopausal bleeding. Await transfer to contracted facility for WRAPPER SORTER workup. Cover for Int Med-Dr Montoya. Objective Last Vital Signs Date Time Temp Pulse Resp B/P Pulse Ox O2 Delivery O2 Flow Rate FiO2 01/15/17 12:00 98.1 76 18 130/90 96 Room Air Laboratory Tests Test 01/15/17 04:24 White Blood Count 5.1 K/UL (4.8-10.8) Red Blood Count 2.69 M/UL (4.20-5.40) L Hemoglobin 7.9 G/DL (12.0-16.0) L Hematocrit 23.5 % (37.0-47.0) L Mean Corpuscular Volume 88 FL (80-99) Mean Corpuscular Hemoglobin 29.3 PG (27.0-31.0) Mean Corpuscular Hemoglobin Concent 33.4 G/DL (32.0-36.0) Red Cell Distribution Width 14.1 % (11.6-14.8) Platelet Count 220 K/UL (150-450) Mean Platelet Volume 7.5 FL (6.5-10.1) Neutrophils (%) (Auto) % (45.0-75.0) Lymphocytes (%) (Auto) % (20.0-45.0) Monocytes (%) (Auto) % (1.0-10.0) Eosinophils (%) (Auto) % (0.0-3.0) Basophils (%) (Auto) % (0.0-2.0) Sodium Level 142 mEQ/L (135-145) Potassium Level 3.8 mEQ/L (3.4-4.9) Chloride Level 101 mEQ/L (98-107) Carbon Dioxide Level 30 mEQ/L (20-30) Anion Gap 11 (5-15) Blood Urea Nitrogen 7 mg/dL (7-23) Creatinine 0.9 mg/dL (0.5-0.9) Estimat Glomerular Filtration Rate mL/min (>60) Glucose Level 106 mg/dL (74-106) Calcium Level 8.1 mg/dL (8.6-10.2) L Intake and Output 01/14/17 01/15/17 19:00 07:00 Intake Total 1000 ml 660 ml Balance 1000 ml 660 ml Intake Oral 400 ml 360 ml IV Total 600 ml 300 ml # Voids 3 4 Objective General: alert, cooperative, no distress, appears stated age Head: normocephalic, without obvious abnormality, atraumatic Eyes: conjunctivae/corneas clear. PERRL, EOM's intact Throat: lips, mucosa, and tongue normal. MMM Neck: supple, symmetrical, trachea midline, and no JVD Lungs: clear to auscultation bilaterally Heart: regular rate and rhythm, S1, S2 normal, no murmur, click, rub or gallop Abdomen: soft, tender to palp, non-distended, bowel sounds normal; no masses or organomegaly Extremities: extremities normal, atraumatic, no cyanosis or edema Pulses: 2+ and symmetric Skin: skin color, texture, turgor normal; no rashes or lesions Neurologic: grossly normal, no focal deficits Assessment/Plan Problem List: (1) Post-menopausal bleeding Assessment & Plan: See WRAPPER SORTER note-Dr Edward (2) Menorrhagia (3) Anemia, blood loss Assessment & Plan: S/P transfusion 3 units PRBC. Worsening hemoglobin today; type and cross 2 units PRBC poss transfusion. (4) Diabetes mellitus type II, controlled Assessment & Plan: Cont novolog sliding scale. (5) Coronary artery disease (6) Hypertension (7) Hypercholesterolemia (8) Pelvic mass in female Assessment & Plan: Cystic; concerning for malignancy. See WRAPPER SORTER consult- patient will require transfer to contracted facility for WRAPPER SORTER/ONC workup. See WRAPPER SORTER note-Dr Edward Status: not improved Assessment/Plan Transfer to contracted facility for WRAPPER SORTER/ONC workup. Discussed with WRAPPER SORTER - JAMES Whipple Jan 15, 2017 13:58
[2017-01-15 16:00] VITALS: BP 134/76
[2017-01-15 20:00] VITALS: BP 159/96
[2017-01-16] VITALS (7 sets, daily range): BP systolic 133–177; BP diastolic 67–120
[2017-01-16] MEDS: D5 1/2NS 1,000 ML IV SCH ×2 (04:54→18:07)
[2017-01-16] MEDS: NovoLOG Insulin Flexpen SUBQ SCH ×4 (06:30→21:00)
[2017-01-16 06:59] LABS: ANION GAP 12 (5-15); CALCIUM 8.7 mg/dL (8.6-10.2); CARBON DIOXIDE 31 mEQ/L (20-30); CHLORIDE 100 mEQ/L (98-107); CREATININE 0.8 mg/dL (0.5-0.9); HEMOLYSIS 0; POTASSIUM 3.5 mEQ/L (3.4-4.9); SODIUM 143 mEQ/L (135-145)
[2017-01-16 07:05] LABS: BASOPHILS % (AUTO) 0.8 % (0.0-2.0); EOSINOPHILS % (AUTO) 0.8 % (0.0-3.0); LYMPHOCYTES % (AUTO) 18.4 % (20.0-45.0); MEAN CORPUSCULAR HGB CONC 33.1 G/DL (32.0-36.0); MEAN CORPUSCULAR VOLUME 88 FL (80-99); MEAN PLATELET VOLUME 7.5 FL (6.5-10.1); MONOCYTES % (AUTO) 6.2 % (1.0-10.0); NEUTROPHILS % (AUTO) 73.8 % (45.0-75.0); PLATELET COUNT 289 K/UL (150-450); RED BLOOD COUNT 3.91 M/UL (4.20-5.40); RED CELL DISTRIBUTION WIDTH 13.8 % (11.6-14.8); WHITE BLOOD COUNT 7.1 K/UL (4.8-10.8)
[2017-01-16] MEDS: Lisinopril 10mg tab ORAL SCH ×2 (08:27→18:06)
[2017-01-16] MEDS: Metoprolol 50mg tab ORAL SCH ×2 (08:28→21:42)
[2017-01-16] MEDS: HydrALAZINE 50mg tab ORAL SCH ×2 (12:29→21:41)
--- NOTE | 2017-01-16 15:16 | Internal Med Progress Note ---
Subjective Date of Service: Jan 16, 2017 Physician Name James Villafana Attending Physician Maurice Montoya MD Current Medications Medications (Trade) Dose Ordered Sig/Graciela Route PRN Reason Start Time Stop Time Status Last Admin Dose Admin Acetaminophen (Tylenol) 650 mg Q6H PRN ORAL Mild Pain/Temp > 100.5 01/08/17 22:30 02/07/17 22:29 01/16/17 10:45 Dextrose STAT PRN IV Hypoglycemia 01/08/17 22:45 02/07/17 22:44 Dextrose/Sodium Chloride (D5 0.45% NS) 1,000 ml @ 75 mls/hr [id number] IV 01/09/17 00:45 02/08/17 00:44 01/16/17 04:54 Hydralazine HCl (Apresoline) 50 mg EVERY 8 HOURS ORAL 01/16/17 14:00 02/15/17 13:59 01/16/17 12:29 Insulin Aspart (NovoLOG) BEFORE MEALS AND HS SUBQ 01/09/17 06:30 02/08/17 06:29 01/14/17 20:12 Lisinopril (Zestril) 10 mg BID ORAL 01/16/17 09:00 02/15/17 08:59 01/16/17 08:27 Metoprolol Tartrate (Lopressor) 50 mg Q12HR ORAL 01/16/17 09:00 02/15/17 08:59 01/16/17 08:28 Ondansetron HCl (Zofran) 4 mg Q4H PRN IVP Nausea & Vomiting 01/08/17 22:30 02/07/17 22:29 Allergies: Coded Allergies: NO KNOWN ALLERGIES (Unverified Allergy, Unknown, 03/04/14) ROS Limited/Unobtainable: No Constitutional: Reports: no symptoms HEENT: Reports: no symptoms Cardiovascular: Reports: no symptoms Respiratory: Reports: no symptoms Gastrointestinal/Abdominal: Reports: no symptoms Genitourinary: Reports: pain Neurologic/Psychiatric: Reports: no symptoms Subjective 76 YO F admitted with post menopausal bleeding. Await transfer to contracted facility for PREP PERSON workup. Cover for Int Med-Dr Montoya. Objective Last Vital Signs Date Time Temp Pulse Resp B/P Pulse Ox O2 Delivery O2 Flow Rate FiO2 01/16/17 12:29 157/101 01/16/17 12:00 97.5 73 18 97 Room Air Laboratory Tests Test 01/16/17 06:10 White Blood Count 7.1 K/UL (4.8-10.8) Red Blood Count 3.91 M/UL (4.20-5.40) L Hemoglobin 11.3 G/DL (12.0-16.0) #L Hematocrit 34.3 % (37.0-47.0) #L Mean Corpuscular Volume 88 FL (80-99) Mean Corpuscular Hemoglobin 29.0 PG (27.0-31.0) Mean Corpuscular Hemoglobin Concent 33.1 G/DL (32.0-36.0) Red Cell Distribution Width 13.8 % (11.6-14.8) Platelet Count 289 K/UL (150-450) Mean Platelet Volume 7.5 FL (6.5-10.1) Neutrophils (%) (Auto) 73.8 % (45.0-75.0) Lymphocytes (%) (Auto) 18.4 % (20.0-45.0) L Monocytes (%) (Auto) 6.2 % (1.0-10.0) Eosinophils (%) (Auto) 0.8 % (0.0-3.0) Basophils (%) (Auto) 0.8 % (0.0-2.0) Sodium Level 143 mEQ/L (135-145) Potassium Level 3.5 mEQ/L (3.4-4.9) Chloride Level 100 mEQ/L (98-107) Carbon Dioxide Level 31 mEQ/L (20-30) H Anion Gap 12 (5-15) Blood Urea Nitrogen 6 mg/dL (7-23) L Creatinine 0.8 mg/dL (0.5-0.9) Estimat Glomerular Filtration Rate mL/min (>60) Glucose Level 115 mg/dL (74-106) H Calcium Level 8.7 mg/dL (8.6-10.2) Intake and Output 01/15/17 01/16/17 19:00 07:00 Intake Total 1125 ml 600 ml Balance 1125 ml 600 ml Intake Oral 450 ml IV Total 375 ml 600 ml Blood Product 300 ml # Voids 4 Objective General: alert, cooperative, no distress, appears stated age Head: normocephalic, without obvious abnormality, atraumatic Eyes: conjunctivae/corneas clear. PERRL, EOM's intact Throat: lips, mucosa, and tongue normal. MMM Neck: supple, symmetrical, trachea midline, and no JVD Lungs: clear to auscultation bilaterally Heart: regular rate and rhythm, S1, S2 normal, no murmur, click, rub or gallop Abdomen: soft, tender to palp, non-distended, bowel sounds normal; no masses or organomegaly Extremities: extremities normal, atraumatic, no cyanosis or edema Pulses: 2+ and symmetric Skin: skin color, texture, turgor normal; no rashes or lesions Neurologic: grossly normal, no focal deficits Assessment/Plan Problem List: (1) Post-menopausal bleeding Assessment & Plan: See PREP PERSON note-Dr Edward (2) Menorrhagia (3) Anemia, blood loss Assessment & Plan: S/P transfusion 5 units PRBC total.. (4) Diabetes mellitus type II, controlled Assessment & Plan: Cont novolog sliding scale. (5) Coronary artery disease (6) Hypertension (7) Hypercholesterolemia (8) Pelvic mass in female Assessment & Plan: Cystic; concerning for malignancy. See PREP PERSON consult- patient will require transfer to contracted facility for PREP PERSON/ONC workup. See PREP PERSON note-Dr Edward Status: not improved Assessment/Plan Transfer to contracted facility for PREP PERSON/ONC workup. Discussed with PREP PERSON - JAMES Whipple Jan 16, 2017 15:15
[2017-01-17 00:08] VITALS: BP 140/80
[2017-01-17 04:23] VITALS: BP 135/88
[2017-01-17] MEDS: D5 1/2NS 1,000 ML IV SCH (05:28)
[2017-01-17] MEDS: HydrALAZINE 50mg tab ORAL SCH ×2 (05:28→14:27)
[2017-01-17] MEDS: NovoLOG Insulin Flexpen SUBQ SCH ×3 (06:30→16:30)
[2017-01-17 07:07] LABS: BASOPHILS % (AUTO) 0.6 % (0.0-2.0); EOSINOPHILS % (AUTO) 0.7 % (0.0-3.0); LYMPHOCYTES % (AUTO) 19.9 % (20.0-45.0); MEAN CORPUSCULAR HEMOGLOBIN 28.8 PG (27.0-31.0); MEAN CORPUSCULAR HGB CONC 32.6 G/DL (32.0-36.0); MEAN CORPUSCULAR VOLUME 88 FL (80-99); MEAN PLATELET VOLUME 7.1 FL (6.5-10.1); MONOCYTES % (AUTO) 7.7 % (1.0-10.0); NEUTROPHILS % (AUTO) 71.1 % (45.0-75.0); PLATELET COUNT 304 K/UL (150-450); RED BLOOD COUNT 3.87 M/UL (4.20-5.40); RED CELL DISTRIBUTION WIDTH 14.1 % (11.6-14.8); WHITE BLOOD COUNT 7.3 K/UL (4.8-10.8)
[2017-01-17 07:49] LABS: ANION GAP 14 (5-15); CALCIUM 8.5 mg/dL (8.6-10.2); CARBON DIOXIDE 27 mEQ/L (20-30); CHLORIDE 98 mEQ/L (98-107); CREATININE 0.9 mg/dL (0.5-0.9); HEMOLYSIS 5; POTASSIUM 3.6 mEQ/L (3.4-4.9); SODIUM 139 mEQ/L (135-145)
[2017-01-17 08:00] VITALS: BP 149/92
[2017-01-17] MEDS: Lisinopril 10mg tab ORAL SCH ×2 (08:14→17:11)
[2017-01-17] MEDS: Metoprolol 50mg tab ORAL SCH (08:15)
[2017-01-17 11:29] VITALS: BP 128/66
--- NOTE | 2017-01-17 15:09 | Internal Med Progress Note ---
Subjective Physician Name Maurice Montoya Attending Physician Maurice Montoya MD Current Medications Medications (Trade) Dose Ordered Sig/Graciela Route PRN Reason Start Time Stop Time Status Last Admin Dose Admin Acetaminophen (Tylenol) 650 mg Q6H PRN ORAL Mild Pain/Temp > 100.5 01/08/17 22:30 02/07/17 22:29 01/17/17 10:02 Dextrose STAT PRN IV Hypoglycemia 01/08/17 22:45 02/07/17 22:44 Dextrose/Sodium Chloride (D5 0.45% NS) 1,000 ml @ 75 mls/hr [id number] IV 01/09/17 00:45 02/08/17 00:44 01/17/17 05:28 Hydralazine HCl (Apresoline) 50 mg EVERY 8 HOURS ORAL 01/16/17 14:00 02/15/17 13:59 01/17/17 14:27 Insulin Aspart (NovoLOG) BEFORE MEALS AND HS SUBQ 01/09/17 06:30 02/08/17 06:29 01/14/17 20:12 Lisinopril (Zestril) 10 mg BID ORAL 01/16/17 09:00 02/15/17 08:59 01/17/17 08:14 Metoprolol Tartrate (Lopressor) 50 mg Q12HR ORAL 01/16/17 09:00 02/15/17 08:59 01/17/17 08:15 Ondansetron HCl (Zofran) 4 mg Q4H PRN IVP Nausea & Vomiting 01/08/17 22:30 02/07/17 22:29 Allergies: Coded Allergies: NO KNOWN ALLERGIES (Unverified Allergy, Unknown, 03/04/14) Subjective Awake, alert, responsive, no more vaginal bleeding for past 2 days, H/H stable, No abdominal pain, No N /V Objective Last Vital Signs Date Time Temp Pulse Resp B/P Pulse Ox O2 Delivery O2 Flow Rate FiO2 01/17/17 14:27 128/70 01/17/17 11:29 98.1 74 20 97 Room Air Laboratory Tests Test 01/17/17 05:00 White Blood Count 7.3 K/UL (4.8-10.8) Red Blood Count 3.87 M/UL (4.20-5.40) L Hemoglobin 11.1 G/DL (12.0-16.0) L Hematocrit 34.1 % (37.0-47.0) L Mean Corpuscular Volume 88 FL (80-99) Mean Corpuscular Hemoglobin 28.8 PG (27.0-31.0) Mean Corpuscular Hemoglobin Concent 32.6 G/DL (32.0-36.0) Red Cell Distribution Width 14.1 % (11.6-14.8) Platelet Count 304 K/UL (150-450) Mean Platelet Volume 7.1 FL (6.5-10.1) Neutrophils (%) (Auto) 71.1 % (45.0-75.0) Lymphocytes (%) (Auto) 19.9 % (20.0-45.0) L Monocytes (%) (Auto) 7.7 % (1.0-10.0) Eosinophils (%) (Auto) 0.7 % (0.0-3.0) Basophils (%) (Auto) 0.6 % (0.0-2.0) Sodium Level 139 mEQ/L (135-145) Potassium Level 3.6 mEQ/L (3.4-4.9) Chloride Level 98 mEQ/L (98-107) Carbon Dioxide Level 27 mEQ/L (20-30) Anion Gap 14 (5-15) Blood Urea Nitrogen 7 mg/dL (7-23) Creatinine 0.9 mg/dL (0.5-0.9) Estimat Glomerular Filtration Rate mL/min (>60) Glucose Level 99 mg/dL (74-106) Calcium Level 8.5 mg/dL (8.6-10.2) L Intake and Output 01/16/17 01/17/17 19:00 07:00 Intake Total 400 ml 450 ml Balance 400 ml 450 ml Intake Oral 400 ml IV Total 450 ml # Voids 5 2 # Bowel Movements 4 Objective General: No acute distress, awake and alert HEENT: NCAT, sclera anicteric, PERRL, EOMI. Neck: Supple, no significant jugular venous distention, Lungs: Fair inspiratory effort, no accessory muscle use, clear to auscultation bilaterally, no Wheeze or Rales. Heart: Regular rate and rhythm, normal S1/S2, no murmurs Abdomen: soft, No tenderness, nondistended. Normoactive bowel sounds. / Rectal: Refused and deferred. Extremities: No Cyanosis , clubbing or edema. Varicose Veins LE's. Neuro: A&O x 3, Able to move all extremities Skin: warm, no rashes or lesions Psych: Normal mood and affect Assessment/Plan Assessment/Plan 1. Left adnexal mass most likely Ovarian CA. 2. Postmenopausal bleeding. 3. Anemia most likely due to acute blood loss. 4. Diabetes type 2. 5. Coronary artery disease. 6. Hypertension. 7. Hypercholesterolemia. TREATMENT: discuss with Dr. Edward from [employer] SEPAR[employer] . Monitor H/H as out patient Discuss with patient via party host/hostess explain the plan of care and her status, Needs SWEAT BAND SEPARATOR surgery evaluation possible in [facility] soon. DC Home today Maurice Montoya MD Jan 17, 2017 15:09
[2017-01-17 16:39] VITALS: BP 133/68
[2017-01-17] MEDS ORDERED: NS 550ML IV ONE (17:29)
[2017-01-17] MEDS ORDERED: Tubing Blood Filter IV ONE (17:29)
[2017-01-17] MEDS ORDERED: D5 1/2NS 1000ml IV ONE (17:29)
--- NOTE | 2017-01-18 19:16 | Discharge Summary ---
Discharge Summary Hospital Course Date of Admission Jan 08, 2017 at 21:39 Date of Discharge Jan 17, 2017 at 17:30 Admitting Diagnosis HPI Zeina Carroll is a 76 year old female who was admitted on Jan 08, 2017 at 21:39 for Vaginal Bleed Hospital Course [id number] Discharge Discharge Disposition Patient was discharged to Home (01) Discharge Diagnoses: Fatimah Zhu NP Jan 18, 2017 19:16
--- NOTE | 2017-01-19 00:48 | Discharge Summary 2 SIG ---
DATE OF ADMISSION: 01/08/2017 DATE OF DISCHARGE: 01/17/2017 BRIEF HOSPITAL COURSE: The patient is a 76-year-old, female, who presented with complaints of vaginal bleeding that started on 01/07/2017 when the patient had bright red blood per vagina and stated she had soaked couple of pads. She initially presented to [facility] and was found to be anemic and was transferred to [facility] for insurance purposes. An abdominal ultrasound was done at [place] revealed a left adnexal complicated cyst consistent with neoplasm. Abdominal CT scan showed a large complex cystic and solid mass in the pelvis contiguous with cervix and suspicious for neoplasm. Pelvic ultrasound showed a complex cystic and solid pelvic mass suspected left adnexal in origin and highly suspicious for ovarian neoplasm with a 5 cm fundal fibroid versus solid component of the mass. The patient was referred to gynecology and would require transfer to contracted facility for gynecology workup. Over the course of hospital stay, she received total of 5 units of packed RBC blood transfusion. There has been no more vaginal bleed for the past two days. Hemoglobin and hematocrit had been stable and has been no abdominal pain. The patient was discharged home. Advised to follow up with onco-gynecology soon. FINAL DIAGNOSES: 1. Left adnexal mass most likely ovarian cancer. 2. Postmenopausal bleed. 3. Anemia most likely due to acute blood loss. 4. Diabetes type 2. 5. Coronary artery disease. 6. Hypertension. 7. Hypercholesterolemia. Maurice Montoya M.D. I have been assigned to dictate discharge summary on this account and I was not involved in the patient's management. Fatimah Zhu N.P. DR: NORMA JOB#: [id number] CC: SHERIN
== END 2017-01-17 17:30 | disposition home or self-care (01) | DRG 530 ==
LOC: 3E 21:39
PROC: 30233N1 Transfusion of Nonautologous Red Blood Cells into Peripheral Vein, Percutaneous Approach (ICD-10-PCS; principal; 2017-01-09)
DX: C56.2 Malignant neoplasm of left ovary (principal); D50.0 Iron deficiency anemia secondary to blood loss (chronic); E11.9 Type 2 diabetes mellitus without complications; I10 Essential (primary) hypertension; E78.00 Pure hypercholesterolemia, unspecified; N95.0 Postmenopausal bleeding; I25.10 Atherosclerotic heart disease of native coronary artery without angina pectoris; F17.200 Nicotine dependence, unspecified, uncomplicated; Z95.1 Presence of aortocoronary bypass graft
CPT/HCPCS: 36415; 74177; 76856; 80048; 80053; 82962; 83036; 83735; 84100; 85007; 85025; 85610; 85730; 86304; 86850; 86900; 86901; 86920; 93970; J1815